=== PATIENT | female | born 1990 | race Caucasian/White ===

== ENCOUNTER 2020-06-28 22:55 | Emergency (ER) | payer OTHER, SELFPAY ==
[2020-06-28 23:17] VITALS: BP 121/66; PULSE 74; RESP 17; TEMP 36.9; O2SAT 99; BMI 46.5
--- NOTE | 2020-06-29 00:28 | W.ED.ALLEREA ---
HPI - Allergic Reaction General: Chief complaint: Allergic Reaction Stated complaint: poss allergic reaction Time Seen by Provider: 06/29/20 00:28 History of Present Illness: HPI narrative: Patient is a 30-year-old female who comes to the ED with possible allergic reaction. Symptoms started today. She describes having facial swelling especially around both eyes. She says that the swelling has gotten better today after taking Benadryl. She is unsure of what caused the periorbital swelling. She says she did eat some oysters 2 days ago and was out in the sun and got a sunburn yesterday. Denies any new lotions, soaps or detergents used. Denies any known history of allergies. Denies any vision change, fever, shortness of breath, swelling in the mouth or tongue, nausea/vomiting, bladder symptoms. Associated symptoms: Deny abdominal pain, nausea or vomiting Review of Systems Const: Denies: fever(s), chills or fatigue Eyes: Reports: other (Bilateral periorbital swelling.); Denies: change in vision or eye discomfort ENMT: Denies: throat pain, odynophagia, nasal discharge or nasal congestion Card: Denies: chest pain, palpitations, edema, swelling of feet/ankles, dyspnea on exertion or orthopnea Resp: Denies: dyspnea, productive cough or non-productive cough GI: Denies: abdominal pain, nausea, vomiting, diarrhea, constipation or hematochezia : Denies: flank pain, dysuria or hematuria Musc: Denies: neck pain, back pain or extremity swelling Skin/Breast: Reports: erythema (Sunburn); Denies: rash or new lesions Neuro: Denies: headache(s), numbness in extremities or weakness in extremities PFSH ED PFSH: Social History Smoking and tobacco status: never smoked Alcohol intake: never Physical Exam Const: COMMON NORMALS: no acute distress, patient oriented x3, healthy appearing and alert GENERAL APPEARANCE: cooperative and comfortable HENMT: COMMON NORMALS: normocephalic HEAD & SCALP: normocephalic MOUTH: Normal oral and palatal mucosa present THROAT: posterior oropharynx normal and uvula midline Eye: COMMON NORMALS: Equal, round and reactive pupils present, EOMs intact bilaterally and conjunctivae normal PERIORBITAL: periorbital findings abnormal positive bilateral periorbital swelling (mild swelling); no tenderness, no erythema and no ecchymosis CONJUNCTIVA: Yes conjunctivae normal PUPIL: Yes Equal, round and reactive pupils present Neck/C-Spine: COMMON NORMALS: supple GENERAL: Yes normal visual inspection Resp: COMMON NORMALS: normal respiratory effort, No retractions, No use of accessory muscles and clear to auscultation bilaterally AUSCULTATION: clear to auscultation bilaterally Cardio: COMMON NORMALS: regular rate, regular rhythm, S1 normal heart sound present, S2 normal heart sound present, No gallops present (Cardio), No clicks present (Cardio), No murmurs present (Cardio) and Peripheral pulses 2+ throughout RATE: regular rate RHYTHM: regular rhythm HEART SOUNDS: S1 normal heart sound present and S2 normal heart sound present PERIPHERAL PULSES: Peripheral pulses 2+ throughout GI: COMMON NORMALS: Normal to inspection, nondistended, normoactive bowel sounds present, Soft to palpation, non-tender and no masses PALPATION: Yes Soft to palpation : COMMON NORMALS: Yes no CVA tenderness BLADDER/KIDNEY EXAM: Yes no CVA tenderness Back/Pelvis: COMMON NORMALS: no CVA tenderness Extremity: COMMON NORMALS: normal to inspection Neuro: COMMON NORMALS: patient oriented x3 and moves all extremities SENSORIUM/ORIENTATION: Yes alert Skin: NARRATIVE SKIN EXAM: Patient has mild skin redness caused by sunburn on face and arms. GENERAL SKIN EXAM: dry skin Course Vital Signs: Vital signs: Vital Signs Temperature 98.5 F 06/28/20 23:17 Pulse Rate 71 06/29/20 00:30 Respiratory Rate 18 06/29/20 00:30 Blood Pressure 118/64 06/29/20 00:30 Pulse Oximetry 98 06/29/20 00:30 MDM - Allergic Reaction MDM Narrative: Medical decision making narrative: Patient is a 30-year-old female comes to the ED with possible allergic reaction. She is complaining of facial swelling for the past day that is predominantly swelling around her right and left eyes. On exam patient patient is showing no signs of respiratory distress her lungs are clear to auscultation bilaterally and no lip or tongue swelling. She does have some mild periorbital swelling. Patient is taken Benadryl earlier today and says her facial swelling has improved. She denies any known contact or changes in any skin care products. Patient diagnosed with allergic reaction and given a dose of Solu-Medrol while here in the ED. She was also discharged with a prescription for prednisone and told to take Benadryl or cetirizine as well to help with symptoms. Follow-up with PCP in 7 to 10 days. Return to ED precautions given. Patient understood and agree with plan. Discharge Plan Discharge Patient Disposition: Home Clinical Impression: Allergic reaction Qualifiers: Encounter type: initial encounter Qualified Code(s): T78.40XA - Allergy, unspecified, initial encounter Condition: Stable Prescriptions: New prednisone 50 mg tablet 50 mg PO DAILY 3 Days Qty: 3 RF: 0 No Action phentermine 15 mg capsule 15 mg PO DAILY RF: 0 fluticasone propionate 50 mcg/actuation spray,suspension 1 spray INTRANASAL DAILY Qty: 9.9 RF: 0 Discharge Orders: Discharge Order (Routine); Ordered 06/29/20 Ordered By: Sage Garcia Referrals: Avelino Celeste MD [Primary Care Provider] - Discharge Diet: Regular Discharge Activity: Resume usual activity Patient Instructions: Allergic Reaction Activity Restrictions/Additional Instructions: Follow-up with medical provider as directed in 7-10 days. Take medications as prescribed. You can also take Benadryl or cetirizine which are both [id number] meds to help with symptoms as well. Return to the ER or your medical provider if condition worsens. Please read and understand discharge instructions. If any questions, please ask. Coding Level of Care Code ED Sales And Marketing Coordinator for Finn Fwelaine Exam Comprehensive
[2020-06-29 00:30] VITALS: BP 118/64; PULSE 71; RESP 18; O2SAT 98
[2020-06-29 00:48] VITALS: BP 143/87; PULSE 80; RESP 16; O2SAT 99
== END 2020-06-29 00:54 | disposition home or self-care (01) ==
PROVIDERS: Emergency Provider Physician Assistant; PCP Family Medicine
DX: T78.40XA Allergy, unspecified, initial encounter (principal)
CPT/HCPCS: 12345; 96372; 99281; 99283; J2930

== ENCOUNTER 2021-05-27 15:53 | Emergency (ER) | payer OTHER, SELFPAY ==
[2021-05-27 16:39] VITALS: BP 111/77; PULSE 82; RESP 18; TEMP 36.6; O2SAT 99; BMI 40.7
--- NOTE | 2021-05-27 16:53 | ED_ITS ---
Documented by User: CONCEPCION Huagn 05/28/21 07:13 HPI - General Adult General: Chief complaint: General Medical Stated complaint: Sore throat, drainage Time Seen by Provider: 05/27/21 16:45 Source: patient Mode of arrival: ambulatory Limitations: no limitations History of Present Illness: HPI narrative: Patient is a 31-year-old female who presents to ED today with complaint of a severe sore throat. Patient tells me she has had a sore throat over the past several days that is progressively worsening. She has been taking leftover 500 mg amoxicillin twice daily over the past 3 days without improvement. She was seen at [facility] today and had a negative strep and COVID swab. Patient is here stating the pain is severe reporting that the right side of her throat hurts worse than the left. She is having painful swallowing but is able to control her secretions. No fevers currently but states she did have a fever of 101 two days ago. No other URI symptoms. Onset (ago): day(s) Location: mouth (throat) Severity: severe Pain Consistency: constant Relieving factors: none Exacerbating factors: other (swallowing) Associated symptoms: Reports no associated symptoms; Deny chest pain, dyspnea, headache(s), malaise, nausea, rash or vomiting Treatments prior to arrival: other (antibiotics ) Review of Systems Const: Denies: fever(s), chills, body aches, change in appetite, change in weight, fatigue or malaise ENMT: Reports: throat pain, enlarged tonsils and odynophagia; Denies: uvular edema, mouth pain, swelling of lips/tongue, oral sores, dental pain, nasal discharge or nasal congestion Card: Denies: chest pain Resp: Denies: dyspnea GI: Denies: abdominal pain, nausea or vomiting Musc: Reports: neck pain Skin/Breast: Denies: rash Neuro: Denies: headache(s), numbness in extremities, weakness in extremities or sensory changes PFS ED PFSH: Social History Smoking and tobacco status: never smoked Alcohol intake: never Physical Exam Const: COMMON NORMALS: no acute distress, patient oriented x3, no limitations and alert GENERAL APPEARANCE: cooperative NUTRITIONAL APPEARANCE: obese ORIENTATION/CONSCIOUSNESS: Yes awake, Yes oriented to person, Yes oriented to place and Yes oriented to time HENMT: COMMON NORMALS: normocephalic, atraumatic, hearing grossly normal bilaterally, external ears normal, EAC's normal, TM's normal bilaterally, Normal external nose present, Normal nasal mucous membranes and turbinates present, moist oral mucous membranes, dentition normal and gingiva normal HEAD & SCALP: normal to inspection, normocephalic and atraumatic FACE & SINUS: normal facial exam and sinuses nontender NOSE: Normal external nose present and Normal nasal mucous membranes and turbinates present EXTERNAL EAR: Yes external ears normal EXTERNAL AUDITORY CANAL: EAC's normal TYMPANIC MEMBRANE: TM's normal bilaterally MOUTH: Normal oral and palatal mucosa present, lip normal and tongue normal TEETH & GINGIVA: Yes fair dentition THROAT: abnormal tonsil bilateral erythema, exudates and hypertrophy and peritonsillar mass; no uvular edema OTHER: she has no obvious PRINCIPAL SYSTEMS ENGINEER at this time but there is some very subtle asymmetry and very mild bulging of her R soft palate; no muffled voice; no drooling Eye: GENERAL EYE: appearance normal, both eyes and all related structures Neck/C-Spine: COMMON NORMALS: full ROM and no meningeal signs GENERAL: No anterior neck swelling, Yes lymphadenopathy and No submandibular swelling THYROID: symmetrical Resp: COMMON NORMALS: normal respiratory effort and clear to auscultation bilaterally AUSCULTATION: clear to auscultation bilaterally Cardio: COMMON NORMALS: regular rate and regular rhythm RATE: regular rate RHYTHM: regular rhythm Neuro: COMMON NORMALS: patient oriented x3 SENSORIUM/ORIENTATION: Yes alert, Yes oriented to person, Yes oriented to place and Yes oriented to time MENINGEAL SIGNS: Yes no meningeal signs Skin: COMMON NORMALS: no rashes or lesions noted GENERAL SKIN EXAM: no rashes or lesions noted Course Vital Signs: Vital signs: Vital Signs Temperature 98 F 05/27/21 16:39 Pulse Rate 86 05/27/21 17:49 Respiratory Rate 18 05/27/21 17:49 Blood Pressure 116/78 05/27/21 17:49 Pulse Oximetry 98 05/27/21 17:49 MDM - General Adult MDM Narrative: Medical decision making narrative: Blood work/IV meds pending. Care transferred to BONIFACIO Mcghee at shift change. Lab Data: Labs: Lab Results 05/27/21 05/27/21 05/27/21 Range/Units 16:50 16:55 16:55 WBC 12.2 H (4.0-10.0) 10^3/ uL RBC 4.80 (4.1-5.3) 10^6/u L Hgb 14.1 (11.5-15.3) g/dL Hct 43.1 (37.0-47.0) % MCV 89.8 (81-99) fL MCH 29.4 (28.0-34.0) pg MCHC 32.7 (30.0-36.0) g/dL RDW 11.9 L (12.1-15.1) % Plt Count 267 (130-400) 10^3/c mm MPV 8.8 (7.4-10.4) fL Neut % (Auto) 71.7 % Lymph % (Auto) 20.3 % Gulf % (Auto) 6.8 % Eos % (Auto) 0.8 % Baso % (Auto) 0.2 % Neut # (Auto) 8.69 H (1.8-7.7) 10^3/u L Lymph # (Auto) 2.5 (0.8-4.8) 10^3/u L Gulf # (Auto) 0.8 (0.2-0.9) 10^3/u L Eos # (Auto) 0.1 (0.0-0.8) 10^3/u L Baso # (Auto) 0.0 (0.0-0.1) 10^3/u L Nucleated RBC % (a uto) 0 % Nucleated RBCs # 0.0 /100WBC Sodium 137 (136-145) mmol/L Potassium 4.5 (3.5-5.1) mmol/L Chloride 99 (98-107) mmol/L Carbon Dioxide 27 (22-29) mmol/L Anion Gap 15.5 (5-19) BUN 12 (6-20) mg/dL Creatinine 0.6 (0.5-0.9) mg/dL GFR Calculation 115.9 (90-130) mL/min Glucose 90 (65-115) mg/dL Calculated Osmolal ity 283 L (285-295) mOsm/k g Calcium 8.7 (8.5-10.5) mg/dL Group A Strep Rapi d Negative (Negative) Discharge Plan Discharge Patient Disposition: Home Clinical Impression: Exudative tonsillitis Condition: Stable Prescriptions: New clindamycin HCl 150 mg capsule 450 mg PO BID 10 Days Qty: 60 RF: 0 dexamethasone 4 mg tablet 4 mg PO DAILY Qty: 5 RF: 0 diclofenac potassium 50 mg tablet 50 mg PO Q8H PRN (Reason: pain) Qty: 14 RF: 0 No Action phentermine 15 mg capsule 15 mg PO DAILY RF: 0 fluticasone propionate 50 mcg/actuation spray,suspension 1 spray INTRANASAL DAILY Qty: 9.9 RF: 0 Discharge Orders: Discharge ED (Routine); Ordered 05/27/21 Ordered By: Campbell Harden Referrals: Avelino Celeste MD [Primary Care Provider] - Discharge Diet: Usual diet Discharge Activity: Increase activity as tolerated Patient Instructions: Tonsillitis (ED), Opioid Safety Activity Restrictions/Additional Instructions: Home and rest. Take antibiotics as directed. Use medication as prescribed. Drink plenty of water. Follow-up with director of quantitative research, case management will contact you with assistance for arranging appointment. Drink plenty of water with medications. Return to the emergency room for worsening symptoms, difficulty swallowing, or new concerns. Follow-up with primary care as needed. Stand Alone Forms: Work/School Release Sign Out Sign Out Data: Patient Sign Out occurred on 05/27/21 at 17:10. Patient's care was discussed, and care was transferred from to Campbell Harden. 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 Patient was reported to have tonsillar erythema with exudate, and severe sore throat. Patient has been evaluated in a local office and strep test was negative and COVID-19 test was negative. Plan of care at this time is to treat with clindamycin and dexamethasone and have patient follow-up with ENT. We are awaiting labs and infusion of medications. Vital Signs: Vital signs: Vital Signs Temperature 98 F 05/27/21 16:39 Pulse Rate 86 05/27/21 17:49 Respiratory Rate 18 05/27/21 17:49 Blood Pressure 116/78 05/27/21 17:49 Pulse Oximetry 98 05/27/21 17:49 MDM - General Adult MDM Narrative: Medical decision making narrative: Patient came into the emergency room due to a significantly sore throat. Patient been seen at a outside provider and diagnosed with tonsillitis and started on amoxicillin. Patient reported no improvement in symptoms and came to the ER. Patient is able to manage secretions well without any difficulty. On exam we note some tons illar enlargement with the right tonsil being slightly enlarged versus the left. Patient does have exudate and redness bilateral to each tonsil. Patient manages secretions well. Patient has no difficulty with respirations and airway is intact. Differential diagnosis includes tonsillar abscess, retropharyngeal abscess, exudative tonsillitis. Laboratory values noted mild increase in white count at 12,000. Remainder of labs were unremarkable. Repeat strep was negative. Patient had outside strep test that was negative and a outside COVID- 19 test that was negative. Patient was treated with IV clindamycin and dexamethasone and Toradol. Patient was encouraged to drink plenty of fluids. We will continue patient on antibiotic, steroid and diclofenac. Patient was recommended to follow-up with ENT for further evaluation and treatment or return to the ER for worsening symptoms. Patient reported understanding and agreed to plan. Lab Data: Labs: Lab Results 05/27/21 05/27/21 05/27/21 Range/Units 16:50 16:55 16:55 WBC 12.2 H (4.0-10.0) 10^3/ uL RBC 4.80 (4.1-5.3) 10^6/u L Hgb 14.1 (11.5-15.3) g/dL Hct 43.1 (37.0-47.0) % MCV 89.8 (81-99) fL MCH 29.4 (28.0-34.0) pg MCHC 32.7 (30.0-36.0) g/dL RDW 11.9 L (12.1-15.1) % Plt Count 267 (130-400) 10^3/c mm MPV 8.8 (7.4-10.4) fL Neut % (Auto) 71.7 % Lymph % (Auto) 20.3 % Gulf % (Auto) 6.8 % Eos % (Auto) 0.8 % Baso % (Auto) 0.2 % Neut # (Auto) 8.69 H (1.8-7.7) 10^3/u L Lymph # (Auto) 2.5 (0.8-4.8) 10^3/u L Gulf # (Auto) 0.8 (0.2-0.9) 10^3/u L Eos # (Auto) 0.1 (0.0-0.8) 10^3/u L Baso # (Auto) 0.0 (0.0-0.1) 10^3/u L Nucleated RBC % (a uto) 0 % Nucleated RBCs # 0.0 /100WBC Sodium 137 (136-145) mmol/L Potassium 4.5 (3.5-5.1) mmol/L Chloride 99 (98-107) mmol/L Carbon Dioxide 27 (22-29) mmol/L Anion Gap 15.5 (5-19) BUN 12 (6-20) mg/dL Creatinine 0.6 (0.5-0.9) mg/dL GFR Calculation 115.9 (90-130) mL/min Glucose 90 (65-115) mg/dL Calculated Osmolal ity 283 L (285-295) mOsm/k g Calcium 8.7 (8.5-10.5) mg/dL Group A Strep Rapi d Negative (Negative) Discharge Plan Discharge Patient Disposition: Home Clinical Impression: Exudative tonsillitis Condition: Stable Prescriptions: New clindamycin HCl 150 mg capsule 450 mg PO BID 10 Days Qty: 60 RF: 0 dexamethasone 4 mg tablet 4 mg PO DAILY Qty: 5 RF: 0 diclofenac potassium 50 mg tablet 50 mg PO Q8H PRN (Reason: pain) Qty: 14 RF: 0 No Action phentermine 15 mg capsule 15 mg PO DAILY RF: 0 fluticasone propionate 50 mcg/actuation spray,suspension 1 spray INTRANASAL DAILY Qty: 9.9 RF: 0 Discharge Orders: Discharge ED (Routine); Ordered 05/27/21 Ordered By: Campbell Harden Referrals: Avelino Celeste MD [Primary Care Provider] - Discharge Diet: Usual diet Discharge Activity: Increase activity as tolerated Patient Instructions: Tonsillitis (ED), Opioid Safety Activity Restrictions/Additional Instructions: Home and rest. Take antibiotics as directed. Use medication as prescribed. Drink plenty of water. Follow-up with director of quantitative research, case management will contact you with assistance for arranging appointment. Drink plenty of water with medications. Return to the emergency room for worsening symptoms, difficulty swallowing, or new concerns. Follow-up with primary care as needed. Stand Alone Forms: Work/School Release Sign Out Sign Out Data: Patient Sign Out occurred on 05/27/21 at 17:10. Patient's care was discussed, and care was transferred from to Campbell Harden. 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
[2021-05-27 17:05] LABS: Basophils % 0.2 %; Eosinophils # 0.1 10^3/uL (0.0-0.8); Eosinophils % 0.8 %; Hematocrit 43.1 % (37.0-47.0); Hemoglobin 14.1 g/dL (11.5-15.3); Lymphocytes # 2.5 10^3/uL (0.8-4.8); Lymphocytes % 20.3 %; Mean Corpuscular HGB Conc 32.7 g/dL (30.0-36.0); Mean Corpuscular Hemoglobin 29.4 pg (28.0-34.0); Mean Corpuscular Volume 89.8 fL (81-99); Mean Platelet Volume 8.8 fL (7.4-10.4); Monocytes # 0.8 10^3/uL (0.2-0.9); Monocytes % 6.8 %; Neutrophils # 8.69 10^3/uL (1.8-7.7); Neutrophils % 71.7 %; Nucleated Red Blood Cells % 0 %; Platelet Count 267 10^3/cmm (130-400); Red Cell Distribution Width 11.9 % (12.1-15.1); White Blood Count 12.2 10^3/uL (4.0-10.0)
[2021-05-27] MEDS: dexamethasone 4 mg/mL INJ 8 MG IVP (17:09)
[2021-05-27] MEDS: clindamycin 900 MG/50 ML PREMIX 100 MG IV (17:09)
[2021-05-27 17:22] LABS: Rapid Strep A Test Negative (Negative)
[2021-05-27 17:22] LABS: Blood Urea Nitrogen 12 mg/dL (6-20); Calcium 8.7 mg/dL (8.5-10.5); Carbon Dioxide 27 mmol/L (22-29); Chloride 99 mmol/L (98-107); Glomerular Filtration Rate 115.9 mL/min (90-130); Glucose 90 mg/dL (65-115); Osmolality Calculated 283 mOsm/kg (285-295); Sodium 137 mmol/L (136-145)
[2021-05-27 17:27] LABS: Anion Gap 15.5 (5-19); Potassium 4.5 mmol/L (3.5-5.1)
[2021-05-27 17:49] VITALS: BP 116/78; PULSE 86; RESP 18; O2SAT 98
--- NOTE | 2021-05-28 10:29 | DCPLANNER ---
print manager had message to schedule a follow up appointment for patient with [facility] ENT, Dr. Myers, for exudative tonsilitis. print manager emailed patients information to Nova Bass and Meagan at [facility] General Surgery / ENT. Patients information will be printed and reviewed. Clinic will call patient with appointment information.
--- NOTE | 2021-05-30 14:41 | DCPLANNER ---
Patient has a follow up appointment scheduled for Wednesday, June 02, 2021 at 1:[address] [facility]. Clinic will call patient with appointment information.
--- NOTE | 2021-06-12 08:55 | DCPLANNER ---
Patient did attend appointment with ENT.
== END 2021-05-27 17:59 | disposition home or self-care (01) ==
PROVIDERS: Physician Assistant; Emergency Provider Nurse Practitioner Family; PCP Family Medicine
DX: J03.90 Acute tonsillitis, unspecified (principal)
CPT/HCPCS: 80048; 85025; 87081; 87880; 96365; 96375; 99283; J1100; J3490

== ENCOUNTER 2023-11-22 19:14 | Emergency (ER) | payer BC, SELFPAY ==
--- NOTE | 2023-11-22 19:17 | XRR_ITS ---
PROCEDURE INFORMATION: Exam: XR Chest Exam date and time: 11/22/2023 8:13 PM Age: 33 years old Clinical indication: Chest wall pain; Additional info: Cp TECHNIQUE: Imaging protocol: Radiologic exam of the chest. Views: 1 view. COMPARISON: [place] [id number] 11/01/2019 8:04 AM FINDINGS: Lungs: Bilateral peribronchial thicking and/or mild increased perihilar linear markings suggesting bronchitis and/or viral pneumonitis and/or reactive airway disease. Pleural spaces: Unremarkable. No pleural effusion. No pneumothorax. Heart/Mediastinum: Unremarkable. No cardiomegaly. Bones/joints: Unremarkable. XR/XR chest 1V portable [id number] IMPRESSION: Bilateral peribronchial thicking and/or mild increased perihilar linear markings suggesting bronchitis and/or viral pneumonitis and/or reactive airway disease.
[2023-11-22 19:30] VITALS: BP 156/94; PULSE 85; RESP 18; TEMP 36.9; O2SAT 97
[2023-11-22 21:28] LABS: Basophils # 0.1 10^3/uL (0.0-0.1); Basophils % 0.4 %; Eosinophils # 0.2 10^3/uL (0.0-0.8); Eosinophils % 1.2 %; Hematocrit 38.9 % (36-47); Lymphocytes # 3.6 10^3/uL (0.8-4.8); Lymphocytes % 23.9 %; Mean Corpuscular HGB Conc 33.4 g/dL (30-55); Mean Corpuscular Hemoglobin 29.7 pg (27-33); Mean Platelet Volume 8.4 fL (7.4-10.4); Monocytes % 6.2 %; Neutrophils # 10.36 10^3/uL (1.8-7.7); Nucleated Red Blood Cells % 0 %; Platelet Count 322 10^3/cmm (157-399); Red Blood Count 4.37 10^6/uL (3.85-5.65); Red Cell Distribution Width 11.8 % (12.1-15.1); White Blood Count 15.25 10^3/uL (3.29-11.43)
--- NOTE | 2023-11-22 21:43 | ED_ITS ---
HPI - Chest Pain 2 General: Chief Complaint: Chest Pain Stated Complaint: lung/Cp Time Seen by Provider: 11/22/23 19:30 History of Present Illness: 33-year-old female presents to the emerg ency department with complaints of right chest wall pain that started approximately 3 days ago. She states the pain is getting worse and is worse when she coughs. She states that she also feels like she is short of breath after having a coughing spell and that it hurts worse when she takes a deep breath in. She denies fever chills or night sweats. Associated symptoms: Reports dyspnea Review of Systems 2 General: Reports: 10 or more systems reviewed and unremarkable except in HPI and below Card: Reports: chest pain Resp: Reports: dyspnea and non-productive cough PFSH ED 2 PFSH: Social History Smoking and tobacco/nicotine status: never used tobacco/nicotine Alcohol intake: never Substance/Drug Use: never Physical Exam 2 Narrative: EXAM NARRATIVE: Constitutional: the patient appears well nourished and of normal development. Vital signs as documented. No acute distress at present. Alert and oriented-to person, place, time and situation. Head, eyes, ears, nose, mouth, throat: Normocephalic, atraumatic. Pupils-equal, round, reactive to light. No scleral icterus. Normal-appearing external ears. Normal appearing nasal turbinates, no drainage. No obvious oral lesions, posterior oropharynx without erythema or exudates. Neck: Supple, trachea is midline, no lymphadenopathy, no jugular venous distension, thyromegaly, or carotid bruits. Carotid upstrokes are brisk bilaterally. Lungs: clear to auscultation to all lung arroyo. Symmetrical rise and fall of chest, no obvious signs of increased work of breathing at present. Cardiac: Regular rate and rhythm, positive S1, S2. No murmurs, rubs or gallops that I can appreciate right chest wall pain reproducible upon palpation. Abdomen: Soft, non-tender to palpation, normal active bowel sounds to all quadrants. No palpable masses, no organomegaly and abdominal bruits. Extremities: 2+ pulses in the upper extremities that are equal bilaterally, 2+ pulses in the lower extremities that are equal bilaterally. Non-edematous. Moves all extremities well, sensation to all extremities are noted. Skin: Warm, dry, intact. Course 2 Vital Signs: Vital signs: Vital Signs Temperature 98.4 F 11/22/23 22:32 Pulse Rate 77 11/22/23 22:32 Respiratory Rate 16 11/22/23 22:32 Blood Pressure 123/67 11/22/23 22:32 Pulse Oximetry 93 11/22/23 22:32 Oxygen Delivery Me thod Room Air 11/22/23 19:30 MDM - Chest Pain Medical Decision Making Physical exam completed and documented, I will obtain serial cardiac enzymes, serial twelve-lead EKGs, chest x-ray, CBC, CMP, urinalysis, B-type natriuretic peptide, PT/PTT/INR, and a chest x-ray. I will review any pervious and pertinent medical records for assist in obtaining beneficial medical information to improved the care and treatment of the patient. Medical Records I reviewed the patient's medical records. Lab Data I reviewed the patient's lab results. 11/22/23 21:20 11/22/23 21:20 Radiology Impressions Chest X-Ray 11/22/23 19:17 IMPRESSION: Bilateral peribronchial thicking and/or mild increased perihilar linear markings suggesting bronchitis and/or viral pneumonitis and/or reactive airway disease. Laboratory Results WBC 15.25 10^3/uL (3.29-11.43) H 11/22/23 21:20 RBC 4.37 10^6/uL (3.85-5.65) 11/22/23 21:20 Hgb 13.00 g/dL (11.27-16.99) 11/22/23 21:20 Hct 38.9 % (36-47) 11/22/23 21:20 MCV 89.0 fl (85-98) 11/22/23 21:20 MCH 29.7 pg (27-33) 11/22/23 21:20 MCHC 33.4 g/dL (30-55) 11/22/23 21:20 RDW 11.8 % (12.1-15.1) L 11/22/23 21:20 Plt Count 322 10^3/cmm (157-399) 11/22/23 21:20 MPV 8.4 fL (7.4-10.4) 11/22/23 21:20 Neut % (Auto) 68.0 % 11/22/23 21:20 Lymph % (Auto) 23.9 % 11/22/23 21:20 [place] % (Auto) 6.2 % 11/22/23 21:20 Eos % (Auto) 1.2 % 11/22/23 21:20 Baso % (Auto) 0.4 % 11/22/23 21:20 Neut # (Auto) 10.36 10^3/uL (1.8-7.7) H 11/22/23 21:20 Lymph # (Auto) 3.6 10^3/uL (0.8-4.8) 11/22/23 21:20 [place] # (Auto) 1.0 10^3/uL (0.2-0.9) H 11/22/23 21:20 Eos # (Auto) 0.2 10^3/uL (0.0-0.8) 11/22/23 21:20 Baso # (Auto) 0.1 10^3/uL (0.0-0.1) 11/22/23 21:20 Nucleated RBC % (auto) 0 % 11/22/23 21:20 Nucleated RBCs # 0.0 /100WBC 11/22/23 21:20 Sodium 139 mmol/L (136-145) 11/22/23 21:20 Potassium 3.9 mmol/L (3.5-5.1) 11/22/23 21:20 Chloride 104 mmol/L (98-107) 11/22/23 21:20 Carbon Dioxide 23 mmol/L (22-29) 11/22/23 21:20 Anion Gap 15.9 (5-19) 11/22/23 21:20 BUN 15 mg/dL (6-20) 11/22/23 21:20 Creatinine 0.7 mg/dL (0.5-0.9) 11/22/23 21:20 GFR Calculation 95.8 mL/min (90-130) 11/22/23 21:20 Glucose 94 mg/dL (65-115) 11/22/23 21:20 Calculated Osmolality 289 mOsm/kg (285-295) 11/22/23 21:20 Calcium 9.7 mg/dL (8.5-10.5) 11/22/23 21:20 Total Bilirubin 0.4 mg/dL (0.15-1.2) 11/22/23 21:20 AST 15 U/L (0-32) 11/22/23 21:20 ALT 12 U/L (0-33) 11/22/23 21:20 Alkaline Phosphatase 68 U/L (35-105) 11/22/23 21:20 Troponin T Baseline 10 ng/L (0-10) 11/22/23 21:20 Total Protein 6.9 g/dL (6.6-8.7) 11/22/23 21:20 Albumin 4.1 g/dL (3.5-5.2) 11/22/23 21:20 Globulin 2.8 g/dL (1.3-4.6) 11/22/23 21:20 HCG, Qual Negative (Negative) 11/22/23 21:20 All radiology interpretation(s) finalized by discharge EKG Data EKG 1: Interpretation: Twelve-lead EKG obtained at 2202 and reviewed at 2202 demonstrates normal sinus rhythm NM interval 169 ventricular rate 67 bpm, QRS duration 94 QT 394, QTc [address] elevation or depression to demonstrate acute ischemia or infarction at present. Discharge Plan Discharge Patient Disposition: Home Clinical Impression: Atypical chest pain, Acute costochondritis, Bronchitis Condition: Stable Prescriptions: New benzonatate 200 mg capsule 200 mg PO TID Qty: 30 0RF prednisone 20 mg tablet 40 mg PO DAILY 5 Days Qty: 10 0RF albuterol sulfate 90 mcg/actuation HFA aerosol inhaler 2 inh inhalation Q6H PRN (Reason: shortness of breath or wheezing) Qty: 8.5 0RF Zithromax TRI-ANISH 500 mg tablet See Rx Instructions .ROUTE .COMPLEX Qty: 3 0RF Rx Instructions: For 250 mg dose pack: take 500 mg today (day 1), then 250 mg for 4 days (days 2-5) No Action phentermine 15 mg capsule 15 mg PO DAILY dexamethasone 4 mg tablet 4 mg PO DAILY Qty: 5 0RF diclofenac potassium 50 mg tablet 50 mg PO Q8H PRN (Reason: pain) Qty: 14 0RF Discharge Orders: Discharge ED (Routine); Ordered 11/22/23 Ordered By: William Singh Referrals: Avelino Celeste MD [Primary Care Provider] - Discharge Diet: Advance as tolerated Discharge Activity: Resume usual activity Patient Instructions: Opioid Safety, Pain Management Activity Restrictions/Additional Instructions: Activity Restrictions/Additional Instructions: [facility]. Please realize that you were seen in the Emergency Department and that we are providing you with an emergency medical screening exam and this may not be a complete and all inclusive of all the testing and or medical work-up that you may need to determine your ailment or severity of your illness. It is very important that you follow-up as instructed with your Primary care provider or Specialist for additional evaluation and to discuss your medical treatment plan. You may return to the Emergency Department should you have concerns or if your condition changes or worsens in any way. Coding Level of Care Code ED Guidance Consultant for Finn Llanes
[2023-11-22 21:47] LABS: HCG, Serum Qual Negative (Negative)
[2023-11-22 21:50] LABS: Alanine Aminotransferase 12 U/L (0-33); Albumin Level 4.1 g/dL (3.5-5.2); Alkaline Phosphatase 68 U/L (35-105); Anion Gap 15.9 (5-19); Aspartate Amino Transferase 15 U/L (0-32); Blood Urea Nitrogen 15 mg/dL (6-20); Calcium 9.7 mg/dL (8.5-10.5); Carbon Dioxide 23 mmol/L (22-29); Chloride 104 mmol/L (98-107); Globulin 2.8 g/dL (1.3-4.6); Glomerular Filtration Rate 95.8 mL/min (90-130); Glucose 94 mg/dL (65-115); Osmolality Calculated 289 mOsm/kg (285-295); Potassium 3.9 mmol/L (3.5-5.1); Sodium 139 mmol/L (136-145); Total Bilirubin 0.4 mg/dL (0.15-1.2); Total Protein 6.9 g/dL (6.6-8.7)
[2023-11-22 21:54] LABS: Troponin(5th) Baseline 10 ng/L (0-10)
[2023-11-22] MEDS: ketorolac 30 mg/mL INJ IVP (22:02)
--- NOTE | 2023-11-22 22:02 | ECG_ITS ---
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 [id number]
[2023-11-22 22:03] VITALS: BP 123/67; PULSE 77; RESP 16; O2SAT 93
[2023-11-22 22:32] VITALS: BP 123/67; PULSE 77; RESP 16; TEMP 36.9; O2SAT 93
== END 2023-11-22 22:33 | disposition home or self-care (01) ==
PROVIDERS: Emergency Medicine; Emergency Provider Internal Medicine; PCP Family Medicine
DX: R07.89 Other chest pain (principal); M94.0 Chondrocostal junction syndrome [Tietze]; J40 Bronchitis, not specified as acute or chronic
CPT/HCPCS: 71045; 80053; 84484; 84703; 85025; 93005; 96374; 99285; J1885

== ENCOUNTER 2025-06-03 15:07 | Emergency (ER) | payer BC, SELFPAY ==
--- OUTSIDE RECORDS SUMMARY | 2025-06-03 15:12 | XMS_ITS | Data Portability ---
Author Organization [facility] Erich Aleman [facility] Address [address] [address] Assessment Encounter Date Assessment Date Assessment LastModified by Organization Details LastModified Time 08/15/2024 08/15/2024 Patient reports her throat started hurting a last evening. She reports she had congestion and a cough a few days prior. Advised her to get some Aleve D OTC to see if this will help with her symptoms. If she is not well in a few days, she will contact the office for antibiotics. Not available 08/15/2024 11:23:05 08/24/2024 08/24/2024 Patient reports the medication helps but if she doesn't use it constantly symptoms return. Not available 08/24/2024 13:51:38 12/13/2024 12/13/2024 Patient here today for a check-up. She is ready to make some healthy changes. She has been on Wegovy in the past but when they jumped the dosing, she got sick and didn't go back to it. Not available 12/13/2024 10:41:37 01/18/2025 01/18/2025 She started Keto about 4 days ago. She has noticed a little difference since starting her thyroid dosing. Discussed a sleep study. She does not want to do one at this time. Not available 01/18/2025 10:06:25 Plan of Treatment Reminders Order Date Submit Date Provider Last Modified By Organization Details Last Modified Time Details Appointments None recorded. Lab LDL, serum 2024 025 MARIBEL [facility] ([facility]), [address] [place], [address], 5 21:47:17 CMP, serum or plasma 2024 025 [facility], [address] [facility], [facility] [address], [address], 5 12:42:14 lipid panel, blood 2024 025 [facility], [address] [facility], [facility] [address], [address], 5 12:42:08 CBC 2024 025 [facility], [address], [address], 5 11:25:01 TSH, serum or plasma [address] ([facility]), [address] [place], [address], 5 09:11:52 rapid strep group A, throat 2023 024 [facility] ([facility]), [address] [place], [address], 4 11:07:52 rapid strep group A, throat [address] ([facility]), [address] [place], [address], 4 09:36:[address] referral 2023 024 [facility], [address] [place], [address], 4 11:36:30 Procedures None recorded. Surgeries None recorded. Imaging None recorded. Medication Orders Zepbound 2.5 mg/0.5 mL subcutaneou s pen injector 2024 025 [id number], [address], [place], [address], 19:43:14 clobetasol 0.05 % scalp solution 2023 025 [id number], [address], [place], [place], [id number], 09:59:02 Patient TargetsNo targets recorded. Patient Instructions Encounter Date Encounter Id Patient Instructions Last Modified By Organization Details Last Modified Time 08/15/2024 [id number] Call or return for questions or concerns. Not available 08/15/2024 11:21:29 08/24/2024 [id number] Call or return for questions or concerns. Not available 08/24/2024 13:53:29 12/13/2024 [id number] Call or return for questions or concerns. Not available 12/13/2024 10:35:03 01/18/2025 [id number] Call or return for questions or concerns. Not available 01/29/2025 16:57:47 Reason for Referral Manager Fixed Income Referral for P soriasis Referring Physician: Rosamaria Heller, Family Medicine, Encounter Date: 08/24/2024 Results Created Date Observation Date Name Description Value Unit Range Abnormal Flag Note LastModifiedBy Organization Detail LastModifiedTime 01/18/2001/18/2024 CBC WBC 10.9 x10 4.0-10 .5 high Not Available [facility] [address], [place], [address], 01/18/2024 14:33:47 01/18/20 24 01/18/2024 CBC RBC 4.34 x10 3.50-5 .50 Not Available [facility] [address], [place], [address], 01/18/2024 14:33:47 01/18/20 24 01/18/2024 CBC HGB 13.7 g/dL 12.0-1 6.0 Not Available [facility] [address] [facility] 1, [place], [address], 01/18/2024 14:33:47 01/18/20 24 01/18/2024 CBC HCT 38.0 % 37.0-4 7.0 Not Available [facility] [address] [facility] 1, [place], [address], 01/18/2024 14:33:47 01/18/20 24 01/18/2024 CBC MCV 87.6 fL 80.0-9 9.9 Not Available [facility] [address] [facility] 1, [place], [address], 01/18/2024 14:33:47 01/18/20 24 01/18/2024 CBC MCH 31.5 pg 27.0-3 2.0 Not Available [facility] [address] [facility] 1, [place], [address], 01/18/2024 14:33:47 01/18/20 24 01/18/2024 CBC MCHC 36.0 g/dL 32.0-3 6.0 Not Available [facility] [address] [facility] 1, [place], [address], 01/18/2024 14:33:47 01/18/20 24 01/18/2024 CBC RDW 13.0 % 11.5-1 4.5 Not Available [facility] [address] [facility] 1, [place], [address], 01/18/2024 14:33:47 01/18/20 24 01/18/2024 CBC plt 336.1 x10 140.0- 451.0 Not Available [facility] [address] [facility] 1, [place], [address], 01/18/2024 14:33:47 01/18/20 24 01/18/2024 CBC lymphocytes % 25.3 % 20.0-5 0.0 Not Available [facility] [address] [facility] 1, [place], [address], 01/18/2024 14:33:47 01/18/20 24 01/18/2024 CBC granulcytes % 65.3 % 30.0-7 0.0 Not Available [facility] [address] [facility] 1, [place], [address], 01/18/2024 14:33:47 01/18/20 24 01/18/2024 CBC monocytes % 6.4 % 2.0-10 .0 Not Available [facility] [address] [address], [place], [address], 01/18/2024 14:33:47 01/18/20 24 01/18/2024 CBC granulcytes# 7.1 x10 Not Lindy ilable [facility] [address] [address], [place], [address], 01/18/2024 14:33:47 01/18/20 24 01/18/2024 CBC lymphocytes # 2.7 x10 Not Available [facility] [address] [address], [place], [address], 01/18/2024 14:33:47 01/18/20 24 01/18/2024 CBC monocytes # 0.7 x10 Not Avai lable [facility] [address] [address], [place], [address], 01/18/2024 14:33:47 01/18/20 24 01/18/2024 CMP (FEMA LE) glucose 96.0 mg/dL 60.0-9 9.0 Not Available [facility] [address] [facility] 1, [place], [address], 01/18/2024 17:15:22 01/18/20 24 01/18/2024 CMP (FEMA LE) BUN (blood urea nitrogen) 16.0 mg/dL 10.0-2 6.0 Not Available [facility] [address] [facility] 1, [place], [address], 01/18/2024 17:15:22 01/18/20 24 01/18/2024 CMP (FEMA LE) creatinine (serum) 0.7 mg/dL 0.4-1. 5 Not Available [facility] [address] [address], [place], [address], 01/18/2024 17:15:22 01/18/20 24 01/18/2024 CMP (FEMA LE) BUN/creatini ne ratio 23.19 ratio Not Available [facility] [address] [address], [place], [address], 01/18/2024 17:15:22 01/18/20 24 01/18/2024 CMP (FEMA LE) eGFR calculated 103.5 Not Available [facility] [address] [address], [place], [address], 01/18/2024 17:15:22 01/18/20 24 01/18/2024 CMP (FEMA LE) total protein 7.6 g/dL 6.0-8. 5 Not Available [facility] [address] [address], [place], [address], 01/18/2024 17:15:22 01/18/20 24 01/18/2024 CMP (FEMA LE) total bilirubin 0.5 mg/dL 0.2-1. 3 Not Available [facility] [address] [address], [place], [address], 01/18/2024 17:15:22 01/18/20 24 01/18/2024 CMP (FEMA LE) albumin 4.4 g/dL 3.5-5. 5 Not Available [facility] [address] [facility] 1, [place], [address], 01/18/2024 17:15:22 01/18/20 24 01/18/2024 CMP (FEMA LE) globulin 3.2 calc Not Available [facility] [address] [place] [facility], [place], [address], 01/18/2024 17:15:22 01/18/20 24 01/18/2024 CMP (FEMA LE) AST (SGOT) 26.0 U/L 0.0-46 .0 Not Available [facility] [address] [place] [facility], [place], [address], 01/18/2024 17:15:22 01/18/20 24 01/18/2024 CMP (FEMA LE) altv (SGPT) 18.0 U/L 13.0-6 9.0 normal Not Available [facility] [address] [facility] 1, [place], [address], 01/18/2024 17:15:22 01/18/20 24 01/18/2024 CMP (FEMA LE) A/G ratio 1.4 ratio Not Available [facility] [address] [place] [facility], [place], [address], 01/18/2024 17:15:22 01/18/20 24 01/18/2024 CMP (FEMA LE) ALP phos 73.0 U/L 30.0-1 40.0 normal Not Available [facility] [address] [facility] 1, [place], [address], 01/18/2024 17:15:22 01/18/20 24 01/18/2024 CMP (FEMA LE) calcium 9.1 mg/dL 8.4-10 .5 Not Available [facility] [address] [facility] 1, [place], [address], 01/18/2024 17:15:22 01/18/20 24 01/18/2024 CMP (FEMA LE) sodium 140.0 mmol/ L 136.0- 145.0 Not Available [facility] [address] [facility] 1, [place], [address], 01/18/2024 17:15:22 01/18/20 24 01/18/2024 CMP (FEMA LE) potassium 4.2 mmol/ L 3.5-5. 1 Not Available [facility] [address] [facility] 1, [place], [address], 01/18/2024 17:15:22 01/18/20 24 01/18/2024 CMP (FEMA LE) chloride 107.0 mmol/ L 98.0-1 10.0 normal Not Available [facility] [address] [facility] 1, [place], [address], 01/18/2024 17:15:22 01/18/20 24 01/18/2024 CMP (FEMA LE) C02 26.0 mmol/ L 22.0-3 1.0 Not Available [facility] [address] [facility] 1, [place], [address], 01/18/2024 17:15:22 01/18/20 24 01/18/2024 CMP (FEMA LE) anion gap 7.0 calc Not Available [facility] [address] [facility] 1, [place], [address], 01/18/2024 17:15:22 01/18/20 24 01/18/2024 CMP (FEMA LE) osmolality 290.1 calc Not Available [facility] [address] [facility] 1, [place], [address], 01/18/2024 17:15:22 01/18/20 24 01/18/2024 TSH, serum or plasm a TSH 1.51 uIU/m L 0.49-3 .82 normal Not Available [facility] ([facility]) [address] [place], [address], 01/18/2024 13:23:09 02/03/20 24 02/03/2024 rapid strep group A, throa t Strep negati ve Not Available [facility] ([facility]) [address] [place] [address], [address], 02/03/2024 08:31:09 08/15/20 24 08/15/2024 rapid strep group A, throa t Strep negati ve Not Available [facility] ([facility]) [address] [place] [address], [address], 08/15/2024 10:51:31 12/13/19 25 12/13/2024 CBC WBC 10.3 x10 4.0-10 .5 Not Available [facility] [address] [facility] 1, [place], [address], 12/13/2024 11:25:01 12/13/19 25 12/13/2024 CBC RBC 4.64 x10 3.50-5 .50 Not Available [facility] [address] [facility] 1, [place], [address], 12/13/2024 11:25:01 12/13/19 25 12/13/2024 CBC HGB 14.1 g/dL 12.0-1 6.0 Not Available [facility] [address] [facility] 1, [place], [address], 12/13/2024 11:25:12/13/19 25 12/13/2024 CBC HCT 40.3 % 37.0-4 7.0 Not Available [facility] [address] [facility] 1, [place], [address], 12/13/2024 11:25:12/13/19 25 12/13/2024 CBC MCV 86.9 fL 80.0-9 9.9 Not Available [facility] [address] [facility] 1, [place], [address], 12/13/2024 11:25:12/13/19 25 12/13/2024 CBC MCH 30.4 pg 27.0-3 2.0 Not Available [facility] [address] [facility] 1, [place], [address], 12/13/2024 11:25:12/13/1912/13/2024 CBC MCHC 35.0 g/dL 32.0-3 6.0 Not Available [facility] [address] [facility] 1, [place], [address], 12/13/2024 11:25:12/13/1912/13/2024 CBC RDW 13.9 % 11.5-1 4.5 Not Available [facility] [address] [facility] 1, [place], [address], 12/13/2024 11:25:12/13/1912/13/2024 CBC plt 356.0 x10 140.0- 451.0 Not Available [facility] [address] [facility] 1, [place], [address], 12/13/2024 11:25:12/13/1912/13/2024 CBC lymphocytes % 30.6 % 20.0-5 0.0 Not Available [facility] [address] [facility] 1, [place], [address], 12/13/2024 11:25:01 12/13/19 25 12/13/2024 CBC granulcytes % 60.1 % 30.0-7 0.0 Not Available [facility] [address] [place] [facility], [place], [address], 12/13/2024 11:25:01 12/13/19 25 12/13/2024 CBC monocytes % 6.9 % 2.0-16 .0 Not Available [facility] [address] [address], [place], [address], 12/13/2024 11:25:01 12/13/19 25 12/13/2024 CBC granulcytes# 6.2 x10 Not Lindy ilable [facility] [address] [address], [place], [address], 12/13/2024 11:25:01 12/13/19 25 12/13/2024 CBC lymphocytes # 3.2 x10 Not Available [facility] [address] [address], [place], [address], 12/13/2024 11:25:01 12/13/19 25 12/13/2024 CBC monocytes # 0.7 x10 Not Avai lable [facility] [address] [address], [place], [address], 12/13/2024 11:25:01 12/13/19 25 12/13/2024 LIPID PROFI LE (FEMA LE) cholesterol 249.0 mg/dL 0.0-20 0.0 high Not Available [facility] [address] [address], [place], [address], 12/13/2024 12:42:08 12/13/19 25 12/13/2024 LIPID PROFI LE (FEMA LE) trig 166.0 mg/dL 0.0-15 0.0 high Not Available [facility] [address] [facility] 1, [place], [address], 12/13/2024 12:42:08 12/13/1912/13/2024 LIPID PROFI LE (FEMA LE) HDL - direct 56.0 mg/dL >40.0 Not Available [facility] [address] [facility] 1, [place], [address], 12/13/2024 12:42:08 12/13/1912/13/2024 LIPID PROFI LE (FEMA LE) VLDL - direct 33.2 mg/dL Not Available [facility] [address] [facility] 1, [place], [address], 12/13/2024 12:42:08 12/13/1912/13/2024 LIPID PROFI LE (FEMA LE) LDL - direct 159.8 mg/dL 0.0-13 0.0 high Not Available [facility] [address] [facility] 1, [place], [address], 12/13/2024 12:42:08 12/13/1912/13/2024 CMP (FEMA LE) glucose 103.0 mg/dL 60.0-9 9.0 high Not Available [facility] [address] [address], [place], [address], 12/13/2024 12:42:14 12/13/1912/13/2024 CMP (FEMA LE) BUN (blood urea nitrogen) 14.0 mg/dL 10.0-2 6.0 Not Available [facility] [address] [address], [place], [address], 12/13/2024 12:42:14 12/13/1912/13/2024 CMP (FEMA LE) creatinine (serum) 0.8 mg/dL 0.4-1. 5 Not Available [facility] [address] [address], [place], [address], 12/13/2024 12:42:14 12/13/19 25 12/13/2024 CMP (FEMA LE) BUN/creatini ne ratio 17.50 ratio Not Available [facility] [address] [facility] 1, [place], [address], 12/13/2024 12:42:14 12/13/19 25 12/13/2024 CMP (FEMA LE) eGFR calculated 86.8 Not Available [facility]3] [facility] [address] [facility], [place], [address], 12/13/2024 12:42:14 12/13/19 25 12/13/2024 CMP (FEMA LE) total protein 8.3 g/dL 6.0-8. 5 Not Available [facility] [address] [facility], [place], [address], 12/13/2024 12:42:14 12/13/19 25 12/13/2024 CMP (FEMA LE) total bilirubin 0.4 mg/dL 0.2-1. 3 Not Available [facility] [address] [facility], [place], [address], 12/13/2024 12:42:14 12/13/1912/13/2024 CMP (FEMA LE) albumin 4.6 g/dL 3.5-5. 5 Not Available [facility] [address] [facility], [place], [address], 12/13/2024 12:42:14 12/13/1912/13/2024 CMP (FEMA LE) globulin 3.7 calc Not Available [facility] [address] [facility], [place], [address], 12/13/2024 12:42:14 12/13/1912/13/2024 CMP (FEMA LE) AST (SGOT) 23.0 U/L 0.0-46 .0 Not Available [facility] [address] [facility] 1, [place], [address], 12/13/2024 12:42:14 12/13/19 25 12/13/2024 CMP (FEMA LE) altv (SGPT) 16.0 U/L 13.0-6 9.0 normal Not Available [facility] [address] [address], [place], [address], 12/13/2024 12:42:14 12/13/19 25 12/13/2024 CMP (FEMA LE) A/G ratio 1.2 ratio Not Available [facility] [address] [address], [place], [address], 12/13/2024 12:42:14 12/13/19 25 12/13/2024 CMP (FEMA LE) ALP phos 96.0 U/L 30.0-1 40.0 normal Not Available [facility] [address] [address], [place], [address], 12/13/2024 12:42:14 12/13/19 25 12/13/2024 CMP (FEMA LE) calcium 9.4 mg/dL 8.4-10 .5 Not Available [facility] [address] [address], [place], [address], 12/13/2024 12:42:14 12/13/19 25 12/13/2024 CMP (FEMA LE) sodium 139.0 mmol/ L 136.0- 145.0 Not Available [facility] [address] [address], [place], [address], 12/13/2024 12:42:14 12/13/19 25 12/13/2024 CMP (FEMA LE) potassium 4.7 mmol/ L 3.5-5. 1 Not Available [facility] [address] [facility] 1, [place], [address], 12/13/2024 12:42:14 12/13/19 25 12/13/2024 CMP (FEMA LE) chloride 102.0 mmol/ L 98.0-1 10.0 normal Not Available [facility] [address] [facility] 1, [place], [address], 12/13/2024 12:42:14 12/13/1912/13/2024 CMP (FEMA LE) C02 26.0 mmol/ L 22.0-3 1.0 Not Available [facility] [address] [facility] 1, [place], [address], 12/13/2024 12:42:14 12/13/1912/13/2024 CMP (FEMA LE) anion gap 11.0 calc Not Available [facility] [address] [facility] 1, [place], [address], 12/13/2024 12:42:14 12/13/1912/13/2024 CMP (FEMA LE) osmolality 287.8 calc Not Available [facility] [address] [facility] 1, [place], [address], 12/13/2024 12:42:14 12/13/1912/13/2024 TSH TSH 25.00 uIU/m L 0.49-3 .82 high Not Available [facility] [address] [facility] 1, [place], [address], 12/13/2024 13:47:30 01/19/20 25 01/18/2025 TSH TSH 1.90 uIU/m L 0.49-3 .82 Not Available [facility] [address] [facility] 1, [place], [address], 01/18/2025 09:55:25 02/04/2002/03/2025 LDL, serum LDL mg/dL 0.0-13 0.0 Not Available [facility] ([facility]) [address] [place], [address], 01/18/2025 10:03:04 03/09/2003/09/2025 URINA LYSIS WITH MICRO color YELLOW Not Available [facility] [address] [facility] 1, [place], [address], 03/09/2025 14:19:28 03/09/2003/09/2025 URINA LYSIS WITH MICRO clarity CLEAR Not Available [facility] [address] [facility] 1, [place], [address], 03/09/2025 14:19:28 03/09/20 25 03/09/2025 URINA LYSIS WITH MICRO glu NEGATI VE Not Available [facility] [address] [facility] 1, [place], [address], 03/09/2025 14:19:28 03/09/20 25 03/09/2025 URINA LYSIS WITH MICRO bili NEGATI VE Not Available [facility] [address] [facility] 1, [place], [address], 03/09/2025 14:19:28 03/09/2003/09/2025 URINA LYSIS WITH MICRO ket NEGATI VE Not Available [facility] [address] [facility] [address] [facility] 1, [place], [address], 03/09/2025 14:19:28 03/09/20 25 03/09/2025 URINA LYSIS WITH MICRO S.g 1.020 1.005- 1.025 Not Available [facility] [facility] 1, [place], [address], 03/09/2025 14:19:28 03/09/2003/09/2025 URINA LYSIS WITH MICRO pH 6.0 5.0-7. 0 Not Available [facility] [address] [facility] 1, [place], [address], 03/09/2025 14:19:28 03/09/2003/09/2025 URINA LYSIS WITH MICRO pro NEGATI VE Not Available [facility] [address] [facility] 1, [place], [address], 03/09/2025 14:19:28 03/09/2003/09/2025 URINA LYSIS WITH MICRO uro 0.2 E.U./D L Not Available [facility] [address] [facility] 1, [place], [address], 03/09/2025 14:19:28 03/09/2003/09/2025 URINA LYSIS WITH MICRO nit NEGATI VE Not Available [facility] [address] [facility] 1, [place], [address], 03/09/2025 14:19:28 03/09/2003/09/2025 URINA LYSIS WITH MICRO blo TRACE- INTACT abnormal Not Available [facility] [address] [facility] 1, [place], [address], 03/09/2025 14:19:28 03/09/2003/09/2025 URINA LYSIS WITH MICRO roberta 1+ abnormal Not Available [facility] [address] [facility] 1, [place], [address], 03/09/2025 14:19:28 03/09/2003/09/2025 URINA LYSIS WITH MICRO WBC 25-30 abnormal Not Available [facility] [address] [facility] 1, [place], [address], 03/09/2025 14:19:28 03/09/2003/09/2025 URINA LYSIS WITH MICRO RBC 1-2 Not Available [facility] [address] [facility] 1, [place], [address], 03/09/2025 14:19:28 03/09/2003/09/2025 URINA LYSIS WITH MICRO epi cells 4-6 abnormal Not Available [facility] [address] [facility] 1, [place], [address], 03/09/2025 14:19:28 03/09/2003/09/2025 URINA LYSIS WITH MICRO bacteria TRACE OF MIXED BETH abnormal Not Available [facility] [address] [facility] 1, [place], [address], 03/09/2025 14:19:28 03/09/2003/09/2025 URINA LYSIS WITH MICRO other NG Not Available [facility] [address] [facility] 1, [place], [address], 03/09/2025 14:19:28 03/09/2003/11/2025 CULTU RE, URINE , ROUTI NE culture, urine, routine SEE NOTE abnormal CULTU RE, URINE , ROUTI NE Micro Numbe r: [id number] Test Statu s: Final Speci men Sourc e: Urine , clean catch Speci men Quali ty: Adequ ate Resul t: 10,00 0-49, 000 CFU/m L of Esche isabella a coli E.col i ----- ----- ----- - INT ANTWON AMOX/ CLAVU LANAT E S 4 AMP/S ULBAC ENCARNACION S <=2 CEFAZ ATIF NR <=4 2 CEFEP ALEIDA S <=0.1 2 CEFTA ZIDIM E S <=1 CEFTR IAXON E S <=0.2 5 CIPRO FLOXA BROOKLYNN S <=0.0 6 GENTA MICIN S <=1 IMIPE NEM S <=0.2 5 LEVOF LOXAC IN S <=0.1 2 MEROP ENEM S <=0.2 5 NITRO FURAN TOIN S 32 PIP/T AZOBA CTAM S <=4 TRIME THOPR IM/VALLE LFA S <=20 S = Susce ptibl e I = Inter media te R = Resis tant NS = Not susce ptibl e SDD = Susce ptibl e Dose Depen dent * = Not Teste d NR = Not Repor maki NN = See Thera py Comme nts THERA PY COMME NTS Note 1: For infec tions other than uncom plica maki UTI cause d by E. coli, K. pneum oniae or P. mirab ilis: Cefaz atif is resis tant if ANTWON > or = 8 mcg/m L. (Dist ingui shing susce ptibl e versu s inter media te for isola angélica with ANTWON < or = 4 mcg/m L requi res addit ional testi ng.) Note 2: For uncom plica maki UTI cause d by E. coli, K. pneum oniae or P. mirab ilis: Cefaz atif is susce ptibl e if ANTWON <32 mcg/m L and predi cts susce ptibl e to the oral agent s cefac [place], cefdi yadira, cefpo doxim e, cefpr ozil, cefur oxime , cepha lexin and lorac arbef . Not Available [facility] [address] [place], [address], 03/11/2025 12:13:31 Result Notes None recorded. Problems Name Problem SNOMED Code Status Onset Date Resolution Date Notes Provider Name and Address Organization Details Recorded Time Asthma 436480480 Active 2019 TOD escobar [facility] 5 12:55:00 Hypothyroidism 39881068 Active 2024 TOD escobar [facility] 12:55:08 Hyperlipidemia 92240207 Active 2024 TOD escobar [facility] 12:55:15 Problem Notes None recorded. Procedures Surgical History Date Name Laterality Status Provider Name and Address Organization Details Recorded Time delivery completed TOD DESTINEE schroeder [facility] 08/15/2024 10:50:22 Imaging Results None recorded. Procedure Notes None recorded. Medical Equipment None Reported. Allergies No known drug allergies Medications Name Sig Start Date Stop Date Status Note LastModified by Organization Details LastModified Time azithromyci n 250 mg tablet 01/17 completed Not Available Not Available Not Available benzonatate 200 mg capsule 01/17 completed Not Available Not Available Not Available prednisone 20 mg tablet 01/17 completed Not Available Not Available Not Available clobetasol 0.05 % topical cream PLEASE SEE ATTACHED FOR DETAILED DIRECTION S active Not Available Not Available No t Available phentermine 37.5 mg tablet TAKE ONE TABLET BY MOUTH ONCE a DAY 01/17 completed Not Available Not Available Not Available levothyroxi ne 50 mcg tablet TAKE 1 TABLET BY MOUTH EVERY DAY FOR 90 DAYS, FOR THYROID. active Not Available Not Available No t Available clobetasol 0.05 % topical ointment PLEASE SEE ATTACHED FOR DETAILED DIRECTION S active Not Available Not Available No t Available albuterol sulfate HFA 90 mcg/actuati on aerosol inhaler 01/17 completed Not Available Not Available Not Available clobetasol 0.05 % scalp solution APPLY DAILY TO RED/THICK ENED PLAQUES ON SCALP NEEDED. LEAVE ON FOR 8 HOURS BEFORE RINSING. active Not Available Not Available No t Available rosuvastati n 10 mg tablet TAKE 1 TABLET BY MOUTH AT BEDTIME EVERY DAY FOR 90 DAYS FOR CHOLESTER OL active Not Available Not Available No t Available nitrofurant oin monohydrate /macrocryst als 100 mg capsule Take 1 capsule every 12 hours by oral route for 5 days. 03/23 completed Not Available Not Available Not Available mometasone 0.1 % topical solution APPLY NIGHTLY TO AREAS ON SCALP & LEAVE ON FOR AT LEAST 8 HOURS BEFORE RINSING active Not Available Not Available No t Available Wegovy 1 mg/0.5 mL subcutaneou s pen injector Inject 1 mg every week by subcutane ous route. 12/13 completed Not Available Not Available Not Available Wegovy 0.25 mg/0.5 mL subcutaneou s pen injector Inject 0.25 mg every week by subcutane ous route for 28 days, for obesity. 2024 active Not Available Not Available Not Avai lable Wegovy 0.5 mg/0.5 mL subcutaneou s pen injector 08/24 completed Not Available Not Available Not Available Zepbound 2.5 mg/0.5 mL subcutaneou s pen injector Inject 2.5 mg every week by subcutane ous route for 28 days. 01/30 completed Not Available Not Available Not Available Vitals Date Recorded Body height Body mass index (BMI) Body weight Oxygen saturation Oxygen saturation in Arterial blood by Pulse oximetry Heart rate Respiratory rate Systolic And Diastolic Provider Name and Address Organization Details Last Updated DateTime 5 165.1 cm 48.3 kg/m2 457954. 79 g 99 % 99 % 74 /min 20 /min 116/74 mm[Hg] TOD FELIPE [facility] 5 09:58:43 Date Recorded Body height Body mass index (BMI) Body weight Oxygen saturation Oxygen saturation in Arterial blood by Pulse oximetry Heart rate Respiratory rate Systolic And Diastolic Provider Name and Address Organization Details Last Updated DateTime 5 165.1 cm 50.8 kg/m2 792562. 67 g 97 % 97 % 68 /min 20 /min 118/84 mm[Hg] TOD FELIPE [facility] 5 09:37:16 Date Recorded Body height Body mass index (BMI) Body weight Oxygen saturation Oxygen saturation in Arterial blood by Pulse oximetry Heart rate Respiratory rate Body temperature Systolic And Diastolic Provider Name and Address Organization Details Last Updated DateTime 4 165.1 cm 52 kg/m2 906590. 62 g 97 % 97 % 77 /min 16 /min 98.1 [degF] 138/74 mm[Hg] Aruna Rojo [facility] 4 08:29:00 Date Recorded Body height Body mass index (BMI) Body weight Oxygen saturation Oxygen saturation in Arterial blood by Pulse oximetry Heart rate Body temperature Respiratory rate Systolic And Diastolic Provider Name and Address Organization Details Last Updated DateTime 4 165.1 cm 46.9 kg/m2 849201. 05 g 98 % 98 % 102 /min 99 [degF] 18 /min 126/80 mm[Hg] TOD FELIPE [facility] 4 10:48:21 Date Recorded Body height Body mass index (BMI) Body weight Oxygen saturation Oxygen saturation in Arterial blood by Pulse oximetry Heart rate Respiratory rate Systolic And Diastolic Provider Name and Address Organization Details Last Updated DateTime 4 165.1 cm 48.1 kg/m2 549250. 19 g 98 % 98 % 80 /min 18 /min 128/80 mm[Hg] TOD FELIPE [facility] 4 13:12:46 Social History Question Answer Notes LastModified by NavigatorMD Details LastModified Time Tobacco Smoking Status Never Smoker TOD FELIPE [facility] 08/15/2024 10:49:51 What Is Your Level Of Caffeine Consumption? Moderate [email or web address] Information not available 08/15/2024 Sex: Unknown Functional Status Question Answer Note LastModified by NavigatorMD Details LastModified Time Do you use any illicit or recreational drugs? No [email or web address] Information not available 08/15/2024 What is your level of alcohol consumption? None [email or web address] Information not available 08/15/2024 Are you currently employed? Yes Information not available 08/15/2024 Are you able to walk? YESWOREST Information not available 08/15/2024 Are you able to care for yourself? Yes [email or web address] Information n ot available 08/15/2024 Mental Status None recorded. Family History Relationship Description Onset Age of this Age Resolved Age Notes LastModified by Organization Details LastModified Time Mother Type 2 diabetes mellitus [email or web address] Not available 08/15 10:49:24 Father Essential hypertension [email or web address] Not available 10:49:32 Medical History No medical history recorded. Gynecological HistoryNo gynecological history recorded. Obstetrics History GPAL:G 0 P 0 0 0 0 Immunizations Vaccine Type Date Status Note Provider Nam e and Address Organization Details Recorded Time IPV 4 completed ROSAMARIA ARRON, [address], [address], [facility] 01/18/2024 13:41:55 IPV 0 completed ROSAMARIANehemiah HELLER, [address], [address], [facility] 01/18/2024 13:41:55 IPV 9 completed ROSAMARIA HELLER, [place] [id number], [facility] 01/18/2024 13:41:55 MMR 4 completed ROSAMARIA HELLER, [address], [address], [facility] 01/18/2024 13:41:55 MMR 0 [place] ROSAMARIANehemiah HELLER, [address], [address], [facility] 01/18/2024 13:41:55 COVID-19 vaccine, vector-nr, rS-Ad26, PF, 0.5 mL 1 [place] HELLER, [address], [address], [facility] 01/18/2024 13:41:55 Tdap 6 [place] ROSAMARIANehemiah HELLER, [place] [id number], [facility] 01/18/2024 13:41:55 HPV, quadrivalent 8 completed ROSAMARIA HELLER, [address] [place], [address], [facility] 01/18/2024 13:41:55 HPV, quadrivalent 8 completed ROSAMARIA HELLER, [facility] [address] [place], [address], [facility] 01/18/2024 13:41:55 Td (adult), 2 Lf tetanus toxoid, preservative free, adsorbed 4 completed ROSAMARIA HELLER, [address], [address], [facility] 01/18/2024 13:41:55 Hep B, adolescent or pediatric 3 completed ROSAMARIA HELLER, [address], [address], [facility] 01/18/2024 13:41:55 Hep B, adolescent or pediatric 2 completed ROSAMARIA HELLER, [address], [address], [facility] 01/18/2024 13:41:55 Hep B, adolescent or pediatric 2 completed ROSAMARIA HELLRE, [address], [address], [facility] 01/18/2024 13:41:55 Hep A, adult 8 completed ROSAMARIA HELLER, [address], [address], [facility] 01/18/2024 13:41:55 Hep A, ped/adol, 2 dose 4 completed ROSAMARIA HELLER, [address], [address], [facility] 01/18/2024 13:41:55 Hib (PRP-T) 2 completed ROSAMARIA HELLER [address], [address], [facility] 01/18/2024 13:41:55 DTaP 4 completed ROSAMARIA HELLER [address], [address], [facility] 01/18/2024 13:41:55 DTaP 2 completed ROSAMARIA HELLER [address], [address], [facility] 01/18/2024 13:41:55 DTaP 0 completed ROSAMARIA HELLER [address], [address], [facility] 01/18/2024 13:41:55 DTaP 9 [place] HELLER [address], [address], [facility] 01/18/2024 13:41:55 Past Encounters Encounter ID Performer Location Encounter Start Date Encounter Closed Date Diagnosis/Indication Diagnosis SNOMED-CT Code Diagnosis ICD10 Code Diagnosis Note [id number] ROSAMARIA HELLER [facility] ([facility]) [address] [place] [address] 11/26/2023 14:40:38 11/26/2023 15:30:28 Pleuritic pain 4611869 R07.81 Negative ER work up on 11/20/23. Pain well localized and reproducib le in addition to recent infection. Discussed antiinflam matory and return if symptoms worsen or do not improve. No signs of cardiac cause of symptoms. [id number] ROSAMARIA HELLER [facility] ([facility]) [address] [place] [address] 01/18/2024 11:59:24 01/18/2024 13:49:56 Obesity 840356199 E66.9 Discussed with her weight loss medication s. She will look at [facility] online to see if she can find the medication more affordably . Intermitte nt palpitations 652353199 R00.2 She will try to limit caffeine intake to see if this improves. [id number] LEI BOLTON [facility] ([facility]) [address] [place] [address] 02/03/2024 08:18:28 02/03/2024 09:52:10 Seasonal allergy 088518123 J30.2 Neg strep today. Discussed use of otc zyrtec or claritin. Push oral fluids. May use chlorasept ic spray or throat lozenges. Return if you develop fever or worsening s/s. [id number] ROSAMARIA HELLER [facility] ([facility]) [address] [place] [address] 08/15/2024 10:38:42 08/15/2024 11:24:06 Sore throat 443364790 J02.9 [id number] ROSAMARIA HELLER [facility] ([facility]) [address] [place] [address] 08/24/2024 12:55:09 08/24/2024 14:40:54 Psoriasis 5006017 L40.9 [id number] ROSAMARIA HELLER [facility] ([facility]) [address] [place] [address] 12/13/2024 09:38:08 12/13/2024 10:43:14 Palpitations 88044041 R00.2 Obesity 642731491 E66.9 Discussed with her weight loss medication s. She will see about doing a low carb diet to help her with weight loss. [id number] ROSAMARIA HELLER [facility] ([facility]) [address] [place] [address] 01/18/2025 09:23:16 01/18/2025 10:51:12 Hypothyroidism 27640915 E03.9 Hyperlipidemia 14254043 E78.5 Obesity 914347753 E66.9 She is doing Keto. She would like to try Zepbound. Health Concerns Section Related Observation LastModified by Organization Detai ls LastModified Time None Recorded Concern Status LastModified by Organization Details LastModified Time None Recorded Advance Directives Directive None Recorded Payers Insurance Date Sequence Insurance Name Policy Number Policy Ashley Covered Member ID Ashley Member ID Guarantor Name 04/30/2025 1 [employer] [id number] Tod Chen [id number] Tod Chen Notes Date Note Type Note Provider Name and Address Organization Details Recorded Time 4 text/html Sore ThroatReported bypatient.Location:bilate ral Onset/Timing:date of onset 1; sudden Duration:started 1 day(s) ago Quality:burning Severity:pain level 6/10 Associated Symptoms:no fever; no cough;nauseaNotes:Last night pt developed post nasal drainage and this morning woke up with a sore throat. Has not taken any meds for this. LEI BOLTON, [address], [address], [facility] [place] 02/03/2024 09:37:12 4 text/html Sore ThroatReported bypatient.Location:bilate ral Onset/Timing:sudden Duration:started 1 day(s) ago Quality:difficulty swallowing Associated Symptoms:fever ROSAMARIA ARRON, [address], [address], [facility], [place] 08/15/2024 11:23:21 4 text/html Rash/Skin LesionReported bypatient.Location:scalp; face; elbow Quality:itchy;flaking Severity:moderate Timing:gradual Context:scratching Associated Symptoms:no fever ROSAMARIA HELLER, [address], [address], [facility], [place]. 08/24/2024 13:55:29 5 text/html PalpitationsReported bypatient.Location:chest; throat Quality:fluttering;rapid Severity:moderate Onset/Timing:intermittent Context:at rest Associated Symptoms:no chest pain/discomfort ROSAMARIA HELLER [address], [address], [facility], [place] 12/13/2024 10:41:56 5 text/html HypothyroidReported bypatient.Duration:1-3 months Associated Symptoms:fatigue;palpitat ions; improved Treatment:last TSH level: 25.00; taking medication as prescribed ROSAMARIA HELLER [address], [address], [facility], [place] 01/29/2025 16:58:04 OBGyn Episode No OBEpisode recorded.
--- OUTSIDE RECORDS SUMMARY | 2025-06-03 15:12 | XMS_ITS | Patient Health Record ---
Author Organization [facility] Address [address] [place] [address] Care Team Providers Care Condominium Association Manager Name Role Phone Holt, [facility] Primary Care Provider [phone] HOLT, [facility] Unavailable Unavailable Allergies No Known Allergies Reason For Referral No Information Social History Tobacco Use: Social History Observation Description Date Details (start date - stop date) Never Smoker NA - NA Social History Depression Screening Social Info Question Answer Notes PHQ-9 Little interest or pleasure in doing thin gs Not at all Feeling down, depressed, or hopeless Not at all Trouble falling or staying asleep, or sleeping t oo much Not at all Feeling tired or having little energy Not at all Poor appetite or overeating Not at all Feeling bad about yourself, or that you are a failure, or have let yourself or your family down Not at all Trouble concentrating on thi ngs, such as reading the newspaper or watching television Not at all Moving or speaking so slowly that other people could have noticed. Or the opposite ? being so fidgety or restless that you have been moving around a lot more than usual Not at all Thoughts that you would be b christopher off , or of hurting yourself in some way Not at all Total Score 0 Drugs/Alcohol: Social Info Question Answer Notes Drugs Have you used drugs other than those for medical reasons in the past 12 months? No Tobacco Use: Social Info Question Answer Notes xTobacco Use/Smoking Are you a nonsmoker Additional Details Category Social Info Options Details Drugs/Alcohol: Do you smoke marijuana? De nies Do you drink alcohol? Yes, rarel y Section Notes: 09/25/2022 09/25/2022 PHQ-9 09/25/2022 PHQ-9 09/25/2022 PHQ-9 09/25/2022 Problems Problem Type SNOMED Code ICD Code Onset Dates Problem Status W/U Status Risk Notes Problem Morbid obesity (disorder) (636435145) Morbid (severe) obesity due to excess calories (E66.01) Active confirmed Problem Obesity, morbid (E66.01) Active confirmed Problem Body mass index 40+ - severely obese (315338457) Body mass index [BMI] 45.0-49.9, adult (Z68.42) Active confirmed Problem Body mass index [BMI] 40.0-44.9, adult (Z68.41) Active confirmed Plan Of Treatment No Information Insurance Providers Payer Name Payer Address Payer Phone Subscriber Number Group Number Insured Name Patient Relationship to Insured Coverage Start Date Coverage End Date [place] [address] [place] [phone] [id number] Ashley Hameed Self - patient is the insured Medical (General) History Surgical History Surgery Date(Month/Year) section 2015 Hospitalization History Reason Date(Month/Year) section 2015
[2025-06-03 15:13] VITALS: BP 135/68; PULSE 79; RESP 16; TEMP 36.7; O2SAT 98
[2025-06-03 16:17] VITALS: BP 131/75; PULSE 75; O2SAT 98
[2025-06-03 17:06] LABS: Hematocrit 39.2 % (36-47); Hemoglobin 13.10 g/dL (11.27-16.99); Mean Corpuscular HGB Conc 33.4 g/dL (30-55); Mean Corpuscular Hemoglobin 29.6 pg (27-33); Mean Corpuscular Volume 88.7 fl (85-98); Nucleated Red Blood Cells % 0 %; Platelet Count 367 10^3/cmm (157-399); Red Blood Count 4.42 10^6/uL (3.85-5.65); White Blood Count 15.02 10^3/uL (3.29-11.43)
[2025-06-03 17:24] LABS: Alanine Aminotransferase 11 U/L (0-33); Albumin Level 4.0 g/dL (3.5-5.2); Alkaline Phosphatase 82 U/L (35-105); Anion Gap 16.9 (5-19); Aspartate Amino Transferase 14 U/L (0-32); Blood Urea Nitrogen 14 mg/dL (6-20); Calcium 9.3 mg/dL (8.5-10.5); Carbon Dioxide 23 mmol/L (22-29); Chloride 102 mmol/L (98-107); Creatinine Clr Calc Pharmacy 136.0243; Globulin 3.1 g/dL (1.3-4.6); Glucose 94 mg/dL (65-115); Osmolality Calculated 286 mOsm/kg (285-295); Potassium 3.9 mmol/L (3.5-5.1); Sodium 138 mmol/L (136-145); Total Protein 7.1 g/dL (6.6-8.7)
[2025-06-03 17:27] LABS: Troponin(5th) Baseline < 6 ng/L (0-10)
[2025-06-03 17:57] LABS: Troponin 5 2HR < 6.0 ng/L (0-10); Troponin 5 2HR Delta 0 ABS# (0-10)
[2025-06-03 18:13] VITALS: BP 132/80; PULSE 69; O2SAT 100
--- NOTE | 2025-06-03 18:39 | W.ED.CHESTPA ---
HPI - Chest Pain General: Chief Complaint: Chest Pain Stated Complaint: chest pressure Time Seen by Provider: 06/03/25 16:29 History of Present Illness: Ashley Chen, a 35-year-old female with a history of high cholesterol, presents to the emergency department with chest-related symptoms that have been ongoing for approximately one week. The patient reports experiencing shortness of breath, shoulder pain, and an irregular heartbeat. She describes her heartbeat as weird but is unable to provide more specific details. Today, she felt particularly unwell when these symptoms occurred, which prompted her to seek medical attention. The patient denies any prior heart problems or other significant medical history, aside from high cholesterol. She mentions that her health issues began after she gained a significant amount of weight. The patient has not reported any specific aggravating or alleviating factors for her symptoms. She has not mentioned any radiation of the pain or provided information about the severity of her symptoms. The impact of these symptoms on her daily functioning has not been discussed. Related Data Home Medications ?Medication ?Instructions ?Recorded ?Confirmed clobetasol 0.05 % scalp solution See Rx Instructions .Route .COMPLEX 06/03/25 06/03/25 clobetasol 0.05 % topical cream 1 applic topical DIRECTED 06/03/25 06/03/25 levothyroxine 50 mcg tablet 50 mcg PO QAM 06/03/25 06/03/25 rosuvastatin 10 mg tablet 10 mg PO DAILY 06/03/25 06/03/25 Allergies Allergy/AdvReac Type Severity Reaction Status Date / Time No Known Allergies Allergy Verified 11/22/23 19:34 Review of Systems General: Reports: 10 or more systems reviewed and unremarkable except in HPI and below PFSH ED PFSH: Social History Smoking and tobacco/nicotine status: never used tobacco/nicotine Alcohol intake: never Substance/Drug Use: never Physical Exam Const: COMMON NORMALS: no acute distress, patient oriented x3, healthy appearing, alert and well nourished HENMT: COMMON NORMALS: normocephalic HEAD & SCALP: normocephalic Eye: COMMON NORMALS: EOMs intact bilaterally Neck/C-Spine: COMMON NORMALS: full ROM and supple Resp: COMMON NORMALS: normal respiratory effort, No retractions and clear to auscultation bilaterally AUSCULTATION: clear to auscultation bilaterally Cardio: COMMON NORMALS: regular rate, regular rhythm, No gallops present (Cardio) and No murmurs present (Cardio) RATE: regular rate RHYTHM: regular rhythm GI: COMMON NORMALS: Soft to palpation and non-tender PALPATION: Yes Soft to palpation Extremity: GENERAL: Yes normal exam except as noted Neuro: COMMON NORMALS: patient oriented x3 SENSORIUM/ORIENTATION: Yes alert Skin: COMMON NORMALS: no rashes or lesions noted GENERAL SKIN EXAM: no rashes or lesions noted Course Vital Signs: Vital signs: Vital Signs Temperature 98.1 F 06/03/25 15:13 Pulse Rate 69 06/03/25 18:13 Respiratory Rate 16 06/03/25 15:13 Blood Pressure 132/80 06/03/25 18:13 Pulse Oximetry 100 06/03/25 18:13 Oxygen Delivery Me thod Room Air 06/03/25 18:13 MDM - Chest Pain Medical Decision Making Chief Complaint: Patient presenting with one week of shortness of breath, shoulder pain, and irregular heartbeat, accompanied by a feeling of unease. Chest Discomfort and Palpitations Assessment: - One-week history of chest stuff including shortness of breath, shoulder pain, and irregular heartbeat - No prior cardiac history - Recent weight gain noted - High cholesterol reported - EKG performed in emergency department was normal - Vital signs show mild hypertension - Differential diagnoses include premature ventricular contractions (PVCs), which are common and can cause anxiety-related symptoms - Other cardiac etiologies such as arrhythmias or structural heart disease are less likely given normal EKG and lack of significant risk factors - Anxiety or stress-related symptoms remain a possibility - Normal troponins x 2, she did have an elevated white count which may be related to early infection. Normal metabolic panel. 3. Plan: - Educate patient on PVCs and their benign nature in most cases - Reassure patient that current evaluation shows no evidence of acute life-threatening conditions - Follow up with primary care physician for management of high cholesterol, palpitations, and mild hypertension Lab Data 06/03/25 15:39 06/03/25 15:39 Laboratory Results WBC 15.02 10^3/uL (3.29-11.43) H 06/03/25 15:39 RBC 4.42 10^6/uL (3.85-5.65) 06/03/25 15:39 Hgb 13.10 g/dL (11.27-16.99) 06/03/25 15:39 Hct 39.2 % (36-47) 06/03/25 15:39 MCV 88.7 fl (85-98) 06/03/25 15:39 MCH 29.6 pg (27-33) 06/03/25 15:39 MCHC 33.4 g/dL (30-55) 06/03/25 15:39 RDW 12.1 % (12.1-15.1) 06/03/25 15:39 Plt Count 367 10^3/cmm (157-399) 06/03/25 15:39 MPV 8.7 fL (7.4-10.4) 06/03/25 15:39 Neut % (Auto) 70.0 % 06/03/25 15:39 Lymph % (Auto) 22.5 % 06/03/25 15:39 Wayne % (Auto) 5.7 % 06/03/25 15:39 Eos % (Auto) 1.1 % 06/03/25 15:39 Baso % (Auto) 0.3 % 06/03/25 15:39 Neut # (Auto) 10.52 10^3/uL (1.8-7.7) H 06/03/25 15:39 Lymph # (Auto) 3.4 10^3/uL (0.8-4.8) 06/03/25 15:39 Wayne # (Auto) 0.9 10^3/uL (0.2-0.9) 06/03/25 15:39 Eos # (Auto) 0.2 10^3/uL (0.0-0.8) 06/03/25 15:39 Baso # (Auto) 0.1 10^3/uL (0.0-0.1) 06/03/25 15:39 Nucleated RBC % (auto) 0 % 06/03/25 15:39 Nucleated RBCs # 0.0 /100WBC 06/03/25 15:39 Sodium 138 mmol/L (136-145) 06/03/25 15:39 Potassium 3.9 mmol/L (3.5-5.1) 06/03/25 15:39 Chloride 102 mmol/L (98-107) 06/03/25 15:39 Carbon Dioxide 23 mmol/L (22-29) 06/03/25 15:39 Anion Gap 16.9 (5-19) 06/03/25 15:39 BUN 14 mg/dL (6-20) 06/03/25 15:39 Creatinine 0.8 mg/dL (0.5-0.9) 06/03/25 15:39 GFR Calculation 81.2 mL/min (90-130) L 06/03/25 15:39 Glucose 94 mg/dL (65-115) 06/03/25 15:39 Calculated Osmolality 286 mOsm/kg (285-295) 06/03/25 15:39 Calcium 9.3 mg/dL (8.5-10.5) 06/03/25 15:39 Total Bilirubin 0.4 mg/dL (0.15-1.2) 06/03/25 15:39 AST 14 U/L (0-32) 06/03/25 15:39 ALT 11 U/L (0-33) 06/03/25 15:39 Alkaline Phosphatase 82 U/L (35-105) 06/03/25 15:39 Troponin T Baseline < 6 ng/L (0-10) 06/03/25 15:39 Troponin T 120 Minute < 6.0 ng/L (0-10) 06/03/25 17:25 Delta Troponin T 0 ABS# (0-10) 06/03/25 17:25 Total Protein 7.1 g/dL (6.6-8.7) 06/03/25 15:39 Albumin 4.0 g/dL (3.5-5.2) 06/03/25 15:39 Globulin 3.1 g/dL (1.3-4.6) 06/03/25 15:39 No radiology studies performed this visit Discharge Plan Discharge Patient Disposition: Home Clinical Impression: Chest pain Qualifiers: Chest pain type: other chest pain Qualified Code(s): R07.89 - Other chest pain Condition: Stable Prescriptions: No Action clobetasol 0.05 % cream 1 applic TOPICAL DIRECTED levothyroxine 50 mcg tablet 50 mcg PO QAM rosuvastatin 10 mg tablet 10 mg PO DAILY clobetasol 0.05 % solution See Rx Instructions .ROUTE .COMPLEX Rx Instructions: APPLY DAILY TO RED/THICKENED PLAQUES ON SCALP NEEDED. LEAVE ON FOR 8 HOURS BEFORE RINSING. Discharge Orders: Discharge ED (Routine); Ordered 06/03/25 Ordered By: Santhosh Law Referrals: Avelino Celeste MD [Primary Care Provider, [facility]] Discharge Diet: Advance as tolerated Discharge Activity: Resume usual activity Patient Instructions: Opioid Safety, Pain Management, Patient Portal & Maxwell Instructions Activity Restrictions/Additional Instructions: Please return to the emergency department with any new or worsening symptoms. Follow-up with your primary care doctor for further evaluation of palpitations. Print Language: Citizen [place] Coding Level of Care Code ED Collections Manager for [place]
== END 2025-06-03 18:32 | disposition home or self-care (01) ==
PROVIDERS: Emergency Provider General Practice; PCP Family Medicine
DX: R07.89 Other chest pain (principal)
CPT/HCPCS: 80053; 84484; 85025; 99284

== ENCOUNTER → 2025-07-26 13:46 | Outpatient (BNVA) | payer OTHER, SELFPAY | PROVIDERS: PCP Family Medicine; Visit Provider Emergency Medicine | DX: M25.532 Pain in left wrist (principal) | CPT/HCPCS: 73110 ==

== ENCOUNTER 2025-11-13 10:21 | Outpatient (CLI) | payer BC, SELFPAY ==
[2025-11-13 11:41] LABS: Hematocrit 41.5 % (36-47); Hemoglobin 13.50 g/dL (11.27-16.99); Mean Corpuscular HGB Conc 32.5 g/dL (30-55); Mean Corpuscular Hemoglobin 29.3 pg (27-33); Mean Corpuscular Volume 90.2 fl (85-98); Nucleated Red Blood Cells % 0 %; Platelet Count 339 10^3/cmm (157-399); Red Blood Count 4.60 10^6/uL (3.85-5.65); White Blood Count 12.05 10^3/uL (3.29-11.43)
[2025-11-13 12:05] LABS: Albumin Level 4.2 g/dL (3.5-5.2); Alkaline Phosphatase 90 U/L (35-105); Blood Urea Nitrogen 10 mg/dL (6-20); Calcium 9.3 mg/dL (8.5-10.5); Carbon Dioxide 22 mmol/L (22-29); Chloride 102 mmol/L (98-107); Cholesterol 127 mg/dL (0-200); Globulin 3.4 g/dL (1.3-4.6); Glucose 93 mg/dL (65-115); Sodium 136 mmol/L (136-145); Total Protein 7.6 g/dL (6.6-8.7); Triglycerides 102 mg/dL (0-150); VLDL Cholestrol Calculation 20 mg/dL (0-30)
[2025-11-13 12:18] LABS: HIV 1 & 2 Antigen Non-Reactive (Non-Reactiv)
[2025-11-13 12:46] LABS: Alanine Aminotransferase 13 U/L (0-33); Anion Gap 17.9 (5-19); Aspartate Amino Transferase 17 U/L (0-32); Potassium 3.9 mmol/L (3.5-5.1)
[2025-11-13 12:52] LABS: Osmolality Calculated 285 mOsm/kg (285-295)
[2025-11-13 13:42] LABS: HDL Cholesterol 41 mg/dL (60-100)
[2025-11-13 14:33] LABS: Hepatitis B Surface Antigen Non-Reactive (Nonreactive)
== END 2025-11-13 10:22 | disposition home or self-care (01) ==
PROVIDERS: PCP Nurse Practitioner Family; Visit Provider Nurse Practitioner Family
DX: L40.0 Psoriasis vulgaris (principal)
CPT/HCPCS: 36415; 80048; 80061; 80076; 85025; 86480; 86704; 86706; 86803; 87340; 87806